=== PATIENT | male | born 1940 | race Native Hawaiian/Other Pacific Islander ===

== ENCOUNTER 2016-10-17 08:38 | Outpatient (CLI) | payer OTHER, MEDICARE | END 2016-10-17 10:00 | disposition home or self-care (01) | LOC: RESP 08:38 | DX: R06.02 Shortness of breath (principal) | CPT/HCPCS: 94640; 94664 ==

== ENCOUNTER 2017-08-01 14:47 | Outpatient (CLI) | payer OTHER, MEDICARE | END 2017-08-01 20:33 | disposition home or self-care (01) | LOC: RAD 14:47 | DX: M06.4 Inflammatory polyarthropathy (principal); M25.562 Pain in left knee; Z79.899 Other long term (current) drug therapy; Z51.81 Encounter for therapeutic drug level monitoring ==

== ENCOUNTER 2018-03-04 14:39 | Outpatient (CLI) | payer OTHER, MEDICARE ==
[2018-03-04 15:14] LABS: PLATELET COUNT 330 K/uL (142-355)
[2018-03-04 15:39] LABS: POTASSIUM 4.7 mmol/L (3.6-5.2)
== END 2018-03-04 23:02 | disposition home or self-care (01) ==
LOC: LABW 14:39
PROVIDERS: Internal Medicine
DX: N18.3 Chronic kidney disease, stage 3 (moderate) (principal); Z79.899 Other long term (current) drug therapy
CPT/HCPCS: 36415; 80053; 81000; 82043; 82306; 82330; 82570; 82607; 82728; 82746; 83036; 83540; 83550; 83735; 83970; 84100; 84155; 84439; 84443; 84550; 85027; 85651; 86431

== ENCOUNTER 2018-09-17 08:54 | Outpatient (CLI) | payer OTHER, MEDICARE ==
[2018-09-17 10:13] LABS: PLATELET COUNT 291 K/uL (142-355)
[2018-09-17 10:24] LABS: POTASSIUM 4.4 mmol/L (3.6-5.2)
== END 2018-09-17 23:35 | disposition home or self-care (01) ==
LOC: CT 08:54 → LAB 08:54 → CT 09:00
PROVIDERS: Neurological Surgery
DX: M25.559 Pain in unspecified hip (principal); M54.16 Radiculopathy, lumbar region; E11.22 Type 2 diabetes mellitus with diabetic chronic kidney disease
CPT/HCPCS: 36415; 80053; 81000; 82306; 82330; 82570; 83036; 83735; 83970; 84100; 84155; 85027

== ENCOUNTER 2018-09-19 13:28 | Outpatient (CLI) | payer OTHER, MEDICARE | END 2018-09-19 19:12 | disposition home or self-care (01) | LOC: LAB 13:28 | DX: E11.22 Type 2 diabetes mellitus with diabetic chronic kidney disease (principal); N18.3 Chronic kidney disease, stage 3 (moderate) | CPT/HCPCS: 82330 ==

== ENCOUNTER 2018-09-29 10:33 | Outpatient (CLI) | payer OTHER, MEDICARE | END 2018-09-29 23:20 | disposition home or self-care (01) | LOC: RAD 10:33 | DX: M54.5 Low back pain (principal); Z13.820 Encounter for screening for osteoporosis; M85.88 Other specified disorders of bone density and structure, other site ==

== ENCOUNTER 2018-10-02 14:32 | Outpatient (CLI) | payer OTHER, MEDICARE ==
[2018-10-02 14:51] LABS: PLATELET COUNT 287 K/uL (142-355)
== END 2018-10-02 23:57 | disposition home or self-care (01) ==
LOC: LABW 14:32
PROVIDERS: Internal Medicine Sleep Medicine
DX: J45.51 Severe persistent asthma with (acute) exacerbation (principal)
CPT/HCPCS: 36415; 82785; 85027; 86003

== ENCOUNTER 2018-12-18 08:11 | Outpatient (CLI) | payer OTHER, MEDICARE | END 2018-12-18 23:27 | disposition home or self-care (01) | LOC: RESP 08:11 | DX: J44.9 Chronic obstructive pulmonary disease, unspecified (principal) ==

== ENCOUNTER 2019-01-07 11:56 | Outpatient (CLI) | payer OTHER, MEDICARE | END 2019-01-07 21:56 | disposition home or self-care (01) | LOC: RAD 11:56 | DX: M54.12 Radiculopathy, cervical region (principal) ==

== ENCOUNTER 2019-04-06 11:47 | Outpatient (CLI) | payer OTHER, MEDICARE ==
[2019-04-06 13:07] LABS: PLATELET COUNT 322 K/uL (142-355)
[2019-04-06 13:12] LABS: POTASSIUM 4.6 mmol/L (3.6-5.2)
== END 2019-04-06 19:10 | disposition home or self-care (01) ==
LOC: RAD 11:47
PROVIDERS: Nurse Practitioner Family
DX: H02.132 Senile ectropion of right lower eyelid (principal); L40.59 Other psoriatic arthropathy; L40.8 Other psoriasis; M17.0 Bilateral primary osteoarthritis of knee; Z79.899 Other long term (current) drug therapy
CPT/HCPCS: 36415; 80048; 85027; 93005

== ENCOUNTER 2019-04-24 09:52 | Outpatient (CLI) | payer OTHER, MEDICARE | END 2019-04-24 19:10 | disposition home or self-care (01) | LOC: CT 09:52 | DX: M47.812 Spondylosis without myelopathy or radiculopathy, cervical region (principal) ==

== ENCOUNTER 2019-10-31 13:05 | Emergency (ER) | payer OTHER, MEDICARE ==
[~2019-10-31] VITALS: Ht 185.4 cm; Wt 96.2 kg
[2019-10-31] MEDS ORDERED: TAMSULOSIN0.4 MG PO (13:32)
[2019-10-31] MEDS ORDERED: ELIQUIS5 MG (13:33)
[2019-10-31] MEDS ORDERED: METO-837 PO (13:34)
[2019-10-31] MEDS ORDERED: ACID CONTROL MA20 MG (13:36)
[2019-10-31] MEDS ORDERED: AMIODARONE HYD200 MG PO (13:37)
[2019-10-31] MEDS ORDERED: GLIM2TAB PO (13:38)
[2019-10-31] MEDS ORDERED: FENOFIBRATE160 MG PO (13:38)
[2019-10-31] MEDS ORDERED: HYDRALAZINE50 MG PO (13:42)
[2019-10-31] MEDS ORDERED: KP FOLIC ACID1 MG PO (13:42)
[2019-10-31] MEDS ORDERED: OMEPRAZOLE DR40 MG PO (13:44)
[2019-10-31] MEDS ORDERED: EZETIMIBE10 MG PO (13:44)
[2019-10-31] MEDS ORDERED: COZAAR25 MG PO (13:45)
[2019-10-31] MEDS ORDERED: AMLODIPINE BESYLATE PO (13:45)
[2019-10-31 14:14] LABS: PLATELET COUNT 261 K/uL (142-355)
[2019-10-31 14:17] LABS: POTASSIUM 4.4 mmol/L (3.6-5.2); SODIUM 138 mmol/L (136-145)
[2019-10-31 15:20] VITALS: BP 167/92; TEMP 98.7
== END 2019-10-31 15:25 | disposition home or self-care (01) ==
LOC: ED 13:05
PROVIDERS: Emergency Medicine
DX: I10 Essential (primary) hypertension (principal); Z20.828 Contact with and (suspected) exposure to other viral communicable diseases; R06.02 Shortness of breath
CPT/HCPCS: 80053; 82550; 82553; 83880; 84484; 85027; 87502; 87635; 87651; 93005; 96374; 99284; J3490; U0003

== ENCOUNTER 2020-01-06 10:59 | Outpatient (CLI) | payer OTHER, MEDICARE ==
[~2020-01-06 10:59] MED LIST: ACID CONTROL MA20 MG; AMIODARONE HYD200 MG PO; AMLODIPINE BESYLATE PO; COZAAR25 MG PO; ELIQUIS5 MG; EZETIMIBE10 MG PO; FENOFIBRATE160 MG PO; GLIM2TAB PO; HYDRALAZINE50 MG PO; KP FOLIC ACID1 MG PO; METO-837 PO; OMEPRAZOLE DR40 MG PO; TAMSULOSIN0.4 MG PO
[2020-01-06 11:28] LABS: POTASSIUM 4.2 mmol/L (3.6-5.2)
== END 2020-01-06 19:49 | disposition home or self-care (01) ==
LOC: LABW 10:59
PROVIDERS: ATTEND Internal Medicine Cardiovascular Disease
DX: R06.09 Other forms of dyspnea (principal); Z79.899 Other long term (current) drug therapy
CPT/HCPCS: 36415; 80048; 83880

== ENCOUNTER 2020-04-14 13:11 | Outpatient (CLI) | payer OTHER, MEDICARE | END 2020-04-14 23:13 | disposition home or self-care (01) | LOC: RAD 13:11 | PROVIDERS: ATTEND Internal Medicine Rheumatology | DX: L40.59 Other psoriatic arthropathy (principal) ==

== ENCOUNTER 2020-06-02 10:45 | Outpatient (CLI) | payer OTHER, MEDICARE ==
[2020-06-02 11:08] LABS: PLATELET COUNT 320 K/uL (142-355)
[2020-06-02 11:18] LABS: POTASSIUM 4.4 mmol/L (3.6-5.2)
== END 2020-06-02 22:19 | disposition home or self-care (01) ==
LOC: LABW 10:45
PROVIDERS: ATTEND Nurse Practitioner
DX: Z79.899 Other long term (current) drug therapy (principal); N18.32 Chronic kidney disease, stage 3b; E11.22 Type 2 diabetes mellitus with diabetic chronic kidney disease; R06.09 Other forms of dyspnea
CPT/HCPCS: 36415; 80053; 81000; 82306; 82330; 82570; 83036; 83735; 83880; 83970; 84100; 84155; 85027

== ENCOUNTER 2021-08-01 14:15 | Outpatient (CLI) | payer OTHER, MEDICARE ==
[2021-08-01 14:31] LABS: PLATELET COUNT 412 K/uL (142-355)
== END 2021-08-01 18:54 | disposition home or self-care (01) ==
LOC: RAD 14:15 → LABW 14:15
PROVIDERS: ATTEND Internal Medicine
DX: L40.8 Other psoriasis (principal); Z79.899 Other long term (current) drug therapy; N18.32 Chronic kidney disease, stage 3b; E11.22 Type 2 diabetes mellitus with diabetic chronic kidney disease
CPT/HCPCS: 36415; 80053; 81000; 82306; 82330; 82570; 83036; 83735; 83970; 84100; 84156; 85027

== ENCOUNTER 2021-11-23 15:04 | Emergency (ER) | payer OTHER, MEDICARE ==
[~2021-11-23] VITALS: Ht 193 cm; Wt 102.1 kg
[2021-11-23 16:38] VITALS: BP 142/81; TEMP 98.2
== END 2021-11-23 16:38 | disposition home or self-care (01) ==
LOC: ED 15:04
DX: S91.331A Puncture wound without foreign body, right foot, initial encounter (principal); E11.9 Type 2 diabetes mellitus without complications; W45.0XXA Nail entering through skin, initial encounter; Y92.89 Other specified places as the place of occurrence of the external cause
CPT/HCPCS: 99282

== ENCOUNTER 2022-01-05 08:33 | Outpatient (CLI) | payer OTHER, MEDICARE ==
[2022-01-05 08:55] LABS: PLATELET COUNT 308 K/uL (142-355)
[2022-01-05 09:02] LABS: POTASSIUM 4.2 mmol/L (3.6-5.2)
== END 2022-01-05 19:28 | disposition home or self-care (01) ==
LOC: LABW 08:33
PROVIDERS: ATTEND Internal Medicine Cardiovascular Disease
DX: Z79.899 Other long term (current) drug therapy (principal); I50.9 Heart failure, unspecified; N18.2 Chronic kidney disease, stage 2 (mild); E11.22 Type 2 diabetes mellitus with diabetic chronic kidney disease
CPT/HCPCS: 36415; 80053; 81002; 82306; 82330; 82570; 83036; 83735; 83880; 83970; 84100; 84156; 85027

== ENCOUNTER 2022-01-24 13:29 | Outpatient (CLI) | payer OTHER, MEDICARE ==
[2022-01-24 13:54] LABS: POTASSIUM 4.5 mmol/L (3.6-5.2)
== END 2022-01-24 19:41 | disposition home or self-care (01) ==
LOC: LABW 13:29
PROVIDERS: ATTEND Surgery Plastic and Reconstructive Surgery
DX: Z01.818 Encounter for other preprocedural examination (principal)
CPT/HCPCS: 36415; 80053

== ENCOUNTER 2022-09-06 06:53 | Outpatient (CLI) | payer OTHER, MEDICARE ==
[~2022-09-06 06:53] MED LIST changes: -COZAAR25 MG PO; -ELIQUIS5 MG; +ELIQUIS5 MG PO; -GLIM2TAB PO; +GLIMEPIRIDE PO; +LOSA50TA PO
[2022-09-06 07:12] LABS: PLATELET COUNT 256 K/uL (142-355)
[2022-09-06 08:35] LABS: POTASSIUM 6.1 mmol/L (3.6-5.2)
[2022-09-10] MEDS ORDERED: FARXIGA PO (14:10)
[2022-09-10] MEDS ORDERED: HYDROCHLOROTHIAZIDE PO (14:11)
[2022-09-10] MEDS ORDERED: LEVO0.0529 PO (14:20)
[2022-09-10] MEDS ORDERED: DULO60CA2 PO (14:22)
[2022-09-10] MEDS ORDERED: VITAMIN D2000 UNI2 PO (14:24)
[2022-09-10] MEDS ORDERED: NAC600 M1 PO (14:24)
[2022-09-10] MEDS ORDERED: TRELEGY PO (14:25)
[2022-09-10] MEDS ORDERED: IPRATROPIUM BROMIDE NAS (14:27)
[2022-09-10] MEDS ORDERED: CBD GUMMIES PO (14:28)
[2022-09-10] MEDS ORDERED: ACIPHEX20 MG PO (14:28)
[2022-09-10] MEDS ORDERED: MECLIZINE 2525 MG PO (14:29)
[2022-09-10] MEDS ORDERED: ALBU90AE13 INH (14:29)
[2022-09-10] MEDS ORDERED: TYLENOL PO (14:30)
[2022-09-10] MEDS ORDERED: ACET-689 PO (14:31)
[2022-09-10] MEDS ORDERED: BACLOFEN10 MG PO (14:31)
[2022-09-10] MEDS ORDERED: FURO40TA93 PO (14:32)
[2022-09-10] MEDS ORDERED: FAMOTIDINE40 MG PO (14:32)
== END 2022-09-06 19:16 | disposition home or self-care (01) ==
LOC: LABW 06:53
PROVIDERS: ATTEND Internal Medicine Cardiovascular Disease
DX: Z79.899 Other long term (current) drug therapy (principal); I50.9 Heart failure, unspecified
CPT/HCPCS: 36415; 80053; 83880; 85027

== ENCOUNTER 2022-09-17 14:06 | Inpatient (IN) | payer OTHER, MEDICARE ==
[~2022-09-17] VITALS: Ht 185.4 cm; Wt 103.9 kg
[~2022-09-17 14:06] MED LIST changes: +ACET-689 PO; +ACIPHEX20 MG PO; +ALBU90AE13 INH; +BACLOFEN10 MG PO; +CBD GUMMIES PO; +DULO60CA2 PO; +FAMOTIDINE40 MG PO; +FARXIGA PO; +FURO40TA93 PO; +HYDROCHLOROTHIAZIDE PO; +IPRATROPIUM BROMIDE NAS; +LEVO0.0529 PO; +MECLIZINE 2525 MG PO; +NAC600 M1 PO; +TRELEGY PO; +TYLENOL PO; +VITAMIN D2000 UNI2 PO
[2022-09-23 18:28] LABS: POTASSIUM 4.4 mmol/L (3.6-5.2)
[2022-09-23 18:37] LABS: PLATELET COUNT 338 K/uL (142-355)
== END 2022-10-03 13:30 | disposition home or self-care (01) | DRG 603 ==
LOC: MED/SURG 14:06
PROVIDERS: ADMIT Family Medicine; ATTEND Internal Medicine
DX: L03.115 Cellulitis of right lower limb (principal); R53.1 Weakness; R53.81 Other malaise; R26.89 Other abnormalities of gait and mobility; I12.9 Hypertensive chronic kidney disease with stage 1 through stage 4 chronic kidney disease, or unspecified chronic kidney disease; E11.22 Type 2 diabetes mellitus with diabetic chronic kidney disease; N18.9 Chronic kidney disease, unspecified; I48.91 Unspecified atrial fibrillation; Z79.01 Long term (current) use of anticoagulants; N40.0 Benign prostatic hyperplasia without lower urinary tract symptoms; K21.9 Gastro-esophageal reflux disease without esophagitis; E03.9 Hypothyroidism, unspecified
CPT/HCPCS: 80048; 85027; 87081

== ENCOUNTER 2022-10-23 14:04 | Inpatient (IN) | payer OTHER, MEDICARE | END 2022-10-26 18:21 | disposition still patient (30) | LOC: PAVB 14:04 | PROVIDERS: ADMIT Internal Medicine; ATTEND Internal Medicine | DX: S12.100D Unspecified displaced fracture of second cervical vertebra, subsequent encounter for fracture with routine healing (principal); M62.81 Muscle weakness (generalized); R26.2 Difficulty in walking, not elsewhere classified; R26.81 Unsteadiness on feet; Z74.1 Need for assistance with personal care; S12.112D Nondisplaced Type II dens fracture, subsequent encounter for fracture with routine healing | CPT/HCPCS: 83036; 87081 ==

== ENCOUNTER 2022-10-26 19:15 | Inpatient (IN) | payer OTHER, MEDICARE | END 2022-11-06 07:00 | disposition short-term general hospital (02) | LOC: PAVB 19:15 | PROVIDERS: ADMIT Internal Medicine; ATTEND Internal Medicine | DX: S12.100D Unspecified displaced fracture of second cervical vertebra, subsequent encounter for fracture with routine healing (principal); M62.81 Muscle weakness (generalized); R26.2 Difficulty in walking, not elsewhere classified; R26.81 Unsteadiness on feet; Z74.1 Need for assistance with personal care; S12.112D Nondisplaced Type II dens fracture, subsequent encounter for fracture with routine healing | CPT/HCPCS: 36600; 81000; 82805; 87077; 87086; 87088; 87186 ==

== ENCOUNTER → 2022-11-06 | Emergency (ER) | payer OTHER, MEDICARE ==
[~2022-11-06] VITALS: Ht 165.1 cm; Wt 81.6 kg
[2022-11-06 06:33] LABS: PLATELET COUNT 546 K/uL (142-355)
[2022-11-06 06:34] LABS: POTASSIUM 4.8 mmol/L (3.6-5.2)
[2022-11-06 09:25] LABS: PLATELET COUNT 441 K/uL (142-355); POTASSIUM 4.5 mmol/L (3.6-5.2)
== END ==
LOC: ED 05:56
PROVIDERS: Family Medicine
PROC: 5A12012 Performance of Cardiac Output, Single, Manual (ICD-10-PCS; principal; 2022-11-06)
PROC: 0BH18EZ Insertion of Endotracheal Airway into Trachea, Via Natural or Artificial Opening Endoscopic (ICD-10-PCS; 2022-11-06)
DX: I46.9 Cardiac arrest, cause unspecified (principal); A41.9 Sepsis, unspecified organism; R65.20 Severe sepsis without septic shock; J96.00 Acute respiratory failure, unspecified whether with hypoxia or hypercapnia; I47.1 Supraventricular tachycardia; I48.0 Paroxysmal atrial fibrillation; E11.9 Type 2 diabetes mellitus without complications; E78.5 Hyperlipidemia, unspecified; J44.9 Chronic obstructive pulmonary disease, unspecified; I11.0 Hypertensive heart disease with heart failure; I50.9 Heart failure, unspecified
CPT/HCPCS: 36600; 51702; 80053; 82550; 82805; 82948; 83605; 83880; 84484; 85007; 85027; 85379; 87040; 87070; 87077; 87186; 87205; 87635; 93005; 94002; 96361; 96365; 96366; 96368; 96375; 99285; J0132; J0153; J0282; J0330; J1160; J1940; J2250; J2270; J2405; J2543; J3370; J3490; U0003